=== PATIENT | male | born 1960 | race Caucasian/White ===

== ENCOUNTER 2018-01-01 14:33 | Emergency (ER) | payer OTHER | END 2018-01-01 15:42 | disposition home or self-care (01) | LOC: FTE 14:33 | DX: S50.861A Insect bite (nonvenomous) of right forearm, initial encounter (principal); E11.9 Type 2 diabetes mellitus without complications; W57.XXXA Bitten or stung by nonvenomous insect and other nonvenomous arthropods, initial encounter; Y92.9 Unspecified place or not applicable | CPT/HCPCS: 99283 ==